=== PATIENT | female | born 1945 | race Caucasian/White ===

== ENCOUNTER → 2020-09-22 | Outpatient (CLI) | payer MEDICARE, BC | END | disposition home or self-care (01) | LOC: LABWHC1 11:39 | PROVIDERS: ATTEND Internal Medicine | DX: Z11.59 Encounter for screening for other viral diseases (principal) ==

== ENCOUNTER 2021-01-27 14:36 | Observation (INO) | payer BC, MEDICARE ==
[2021-01-27 15:12] LABS: Appearance,Urine Clear (Clear); Bacteria,Urine Few /hpf; Bilirubin,Urine Negative (Negative); Blood,Urine Negative (Negative); Color,Urine Yellow; Glucose,Urine (UA) Negative (Negative); Hyaline Casts,Urine 8 /lpf (0-2); Ketones,Urine Negative (Negative); Leukocyte Esterase,Urine Small (Negative); Mucus,Urine Rare /hpf; Nitrite,Urine Negative (Negative); PH, Urine 5.5 (5.0-8.0); Protein,Urine Negative (Negative); RBC,Urine 1 /hpf (0-5); Specific Gravity,Urine 1.013 (1.001-1.035); Squamous Epithelial Cell,Urine 2 /hpf (0-4); Urobilinogen,Urine <2.0 mg/dL (<2.0); WBC,Urine 5 /hpf (0-5)
[2021-01-27 15:43] LABS: Basophils % (A) 0 %; Eosinophils # (A) 0.1 k/uL (0-0.7); Eosinophils % (A) 1 %; HCT 41.9 % (34.0-46.0); HGB 15.1 gm/dL (11.4-16.0); Lymphocytes # (A) 0.6 k/uL (1.0-4.8); Lymphocytes % (A) 5 %; MCH 33.1 pg (25.0-35.0); MCHC 36.1 g/dL (31.0-37.0); MCV 91.8 fL (80.0-100.0); Mean Platelet Volume 6.9; Monocytes # (A) 0.4 k/uL (0-1.0); Monocytes % (A) 4 %; Neutrophils % (A) 89 %; Platelet Count 184 k/uL (150-450); RBC 4.56 m/uL (3.80-5.40); RDW 12.2 % (11.5-15.5); WBC 11.2 k/uL (3.8-10.6)
[2021-01-27 16:10] LABS: Albumin 4.5 g/dL (3.5-5.0); Calcium 9.6 mg/dL (8.4-10.2); Potassium 3.3 mmol/L (3.5-5.1); Total Bilirubin 3.6 mg/dL (0.2-1.3); Total Protein 7.4 g/dL (6.3-8.2)
[2021-01-27] MEDS ORDERED: HYDROmorphone 0.5 MG/0.5 ML SYRINGE IVP STA (17:24)
[2021-01-27] MEDS ORDERED: SODIUM CHLORIDE 0.9% 500 ML 500 ML IV ONE ×2 (17:24→18:45)
[2021-01-27] MEDS ORDERED: PIPERACILLIN-TAZOBACTAM 3.375 GM in SODIUM CHLORIDE 0.9% 100 ML IVPB STA (17:48)
--- NOTE | 2021-01-27 18:12 | ED ---
General Adult HPI - General Chief complaint: Abdominal Pain Stated complaint: ABD pain Time Seen by Provider: 01/27/21 17:16 Source: patient, family, RN notes reviewed, old records reviewed Mode of arrival: ambulatory Limitations: no limitations - History of Present Illness Initial comments: 75-year-old female presented for evaluation of abdominal pain which is been present for the past 2 days. Pain began around her bellybutton and has progressed to the right lower quadrant. She reports low-grade fever. She's had some nausea without significant vomiting. This has been mostly dry heaving. No change to bowel habits no constipation or diarrhea. No dysuria or hematuria. She has a history of a previous Adrianna fundoplication. No other abdominal surgery. - Related Data Home Medications Medication Instructions Recorded Confirmed ALPRAZolam [Xanax] 0.25 mg PO BID PRN 01/27/21 01/27/21 Biotin(Unknown 1 tab PO DAILY 01/27/21 01/27/21 Fish Oil(Unknown) 1 tab PO DAILY 01/27/21 01/27/21 Levothyroxine Sodium [Synthroid] 88 mcg PO DAILY 01/27/21 01/27/21 Omeprazole 20 mg PO DAILY 01/27/21 01/27/21 Triamterene-Hctz 37.5-25Mg 1 tab PO DAILY 01/27/21 01/27/21 [Maxzide 37.5-25] Vitamin B-12(Unknown) 1 tab PO DAILY 01/27/21 01/27/21 Vitamin C(Unknown) 1 tab PO DAILY 01/27/21 01/27/21 Vitamin D3(Unknown) 1 tab PO DAILY 01/27/21 01/27/21 Zinc(Unknown) 1 tab PO DAILY 01/27/21 01/27/21 Allergies Allergy/AdvReac Type Severity Reaction Status Date / Time No Known Allergies Allergy Verified 01/27/21 18:47 Review of Systems ROS Statement: Those systems with pertinent positive or pertinent negative responses have been documented in the HPI. ROS Other: All systems not noted in ROS Statement are negative. Past Medical History Past Medical History: GERD/Reflux, Hypertension, Thyroid Disorder Additional Past Medical History / Comment(s): HIATAL HERNIA,VARICOSE VEINS History of Any Multi-Drug Resistant Organisms: None Reported Past Surgical History: Hernia Repair Additional Past Surgical History / Comment(s): HEMORRHOID SURGERY, colonoscopy, eye surgery Past Anesthesia/Blood Transfusion Reactions: No Reported Reaction Past Psychological History: No Psychological Hx Reported Smoking Status: Never smoker Past Alcohol Use History: None Reported Past Drug Use History: None Reported - Past Family History Mother Family Medical History: No Reported History, Diabetes Mellitus, Thyroid Disorder Additional Family Medical History / Comment(s): Mother had history of diabetes and hypothyroidism and at age 96 from heart problems. Father Additional Family Medical History / Comment(s): ALCOHOLISM father at age 72. Brother(s) Additional Family Medical History / Comment(s): Patient had 5 brothers and 2 have . One has from alcoholism and one had Down syndrome. Sister(s) Family Medical History: Cancer Additional Family Medical History / Comment(s): Patient had 6 sisters and one has from cervical cancer. One sister has had heart problems and one sister has had a stroke. Daughter(s) Additional Family Medical History / Comment(s): Patient has 1 daughter and 1 son with no major medical problems. General Exam Limitations: no limitations General appearance: alert, in no apparent distress Head exam: Present: atraumatic, normocephalic Eye exam: Present: normal appearance, PERRL ENT exam: Present: mucous membranes dry Neck exam: Present: normal inspection. Absent: tenderness, meningismus Respiratory exam: Present: normal lung sounds bilaterally. Absent: respiratory distress, wheezes Cardiovascular Exam: Present: regular rate, normal rhythm GI/Abdominal exam: Present: soft, tenderness (Focal tenderness in both right lower and left lower quadrant). Absent: distended, guarding, rebound Extremities exam: Present: normal inspection, normal capillary refill. Absent: pedal edema Neurological exam: Present: alert, oriented X3, CN II-XII intact. Absent: motor sensory deficit Psychiatric exam: Present: normal affect, normal mood Skin exam: Present: warm, dry, intact. Absent: cyanosis, diaphoretic Course Vital Signs 01/27/21 01/27/21 14:38 17:42 Temperature 100.8 F H Pulse Rate 86 80 Respiratory 22 16 Rate Blood Pressure 134/83 129/69 O2 Sat by Pulse 99 96 Oximetry Medical Decision Making - Medical Decision Making CT showing acute appendicitis. Minimal leukocytosis on CBC. Patient will be admitted to general surgery, case has been discussed with Dr. Denney, who will likely operate this evening. She has been initiated on IV antibiotics. - Lab Data Result diagrams: 01/27/21 15:30 01/27/21 15:30 Lab Results 01/27/21 01/27/21 01/27/21 Range/Units 14:56 15:30 15:30 WBC 11.2 H (3.8-10.6) k/uL RBC 4.56 (3.80-5.40) m/uL Hgb 15.1 (11.4-16.0) gm/dL Hct 41.9 (34.0-46.0) % MCV 91.8 (80.0-100.0) fL MCH 33.1 (25.0-35.0) pg MCHC 36.1 (31.0-37.0) g/dL RDW 12.2 (11.5-15.5) % Plt Count 184 (150-450) k/uL MPV 6.9 Neutrophils % 89 % Lymphocytes % 5 % Monocytes % 4 % Eosinophils % 1 % Basophils % 0 % Neutrophils # 10.0 H (1.3-7.7) k/uL Lymphocytes # 0.6 L (1.0-4.8) k/uL Monocytes # 0.4 (0-1.0) k/uL Eosinophils # 0.1 (0-0.7) k/uL Basophils # 0.0 (0-0.2) k/uL Sodium 135 L (137-145) mmol/L Potassium 3.3 L (3.5-5.1) mmol/L Chloride 95 L (98-107) mmol/L Carbon Dioxide 31 H (22-30) mmol/L Anion Gap 9 mmol/L BUN 21 H (7-17) mg/dL Creatinine 0.96 (0.52-1.04) mg/dL Est GFR (CKD-EPI)AfAm 67 (>60 ml/min/1.73 sqM) Est GFR (CKD-EPI)NonAf 59 (>60 ml/min/1.73 sqM) Glucose 142 H (74-99) mg/dL Plasma Lactic Acid [place] (0.7-2.0) mmol/L Calcium 9.6 (8.4-10.2) mg/dL Total Bilirubin 3.6 H (0.2-1.3) mg/dL AST 25 (14-36) U/L ALT 19 (4-34) U/L Alkaline Phosphatase 53 (38-126) U/L Total Protein 7.4 (6.3-8.2) g/dL Albumin 4.5 (3.5-5.0) g/dL Amylase 39 (30-110) U/L Lipase 37 (23-300) U/L Urine Color Yellow Urine Appearance Clear (Clear) Urine pH 5.5 (5.0-8.0) Ur Specific [place] 1.013 (1.001-1.035) Urine Protein Negative (Negative) Urine Glucose (UA) Negative (Negative) Urine Ketones Negative (Negative) Urine Blood Negative (Negative) Urine Nitrite Negative (Negative) Urine Bilirubin Negative (Negative) Urine Urobilinogen <2.0 (<2.0) mg/dL Ur Leukocyte Esterase Small H (Negative) Urine RBC 1 (0-5) /hpf Urine WBC 5 (0-5) /hpf Ur Squamous Epith Cells 2 (0-4) /hpf Urine Bacteria Few H (None) /hpf Hyaline Casts 8 H (0-2) /lpf Urine Mucus Rare H (None) /hpf 01/27/21 Range/Units 17:39 WBC (3.8-10.6) k/uL RBC (3.80-5.40) m/uL Hgb (11.4-16.0) gm/dL Hct (34.0-46.0) % MCV (80.0-100.0) fL MCH (25.0-35.0) pg MCHC (31.0-37.0) g/dL RDW (11.5-15.5) % Plt Count (150-450) k/uL MPV Neutrophils % % Lymphocytes % % Monocytes % % Eosinophils % % Basophils % % Neutrophils # (1.3-7.7) k/uL Lymphocytes # (1.0-4.8) k/uL Monocytes # (0-1.0) k/uL Eosinophils # (0-0.7) k/uL Basophils # (0-0.2) k/uL Sodium (137-145) mmol/L Potassium (3.5-5.1) mmol/L Chloride (98-107) mmol/L Carbon Dioxide (22-30) mmol/L Anion Gap mmol/L BUN (7-17) mg/dL Creatinine (0.52-1.04) mg/dL Est GFR (CKD-EPI)AfAm (>60 ml/min/1.73 sqM) Est GFR (CKD-EPI)NonAf (>60 ml/min/1.73 sqM) Glucose (74-99) mg/dL Plasma Lactic Acid [place] 1.1 (0.7-2.0) mmol/L Calcium (8.4-10.2) mg/dL Total Bilirubin (0.2-1.3) mg/dL AST (14-36) U/L ALT (4-34) U/L Alkaline Phosphatase (38-126) U/L Total Protein (6.3-8.2) g/dL Albumin (3.5-5.0) g/dL Amylase (30-110) U/L Lipase (23-300) U/L Urine Color Urine Appearance (Clear) Urine pH (5.0-8.0) Ur Specific [place] (1.001-1.035) Urine Protein (Negative) Urine Glucose (UA) (Negative) Urine Ketones (Negative) Urine Blood (Negative) Urine Nitrite (Negative) Urine Bilirubin (Negative) Urine Urobilinogen (<2.0) mg/dL Ur Leukocyte Esterase (Negative) Urine RBC (0-5) /hpf Urine WBC (0-5) /hpf Ur Squamous Epith Cells (0-4) /hpf Urine Bacteria (None) /hpf Hyaline Casts (0-2) /lpf Urine Mucus (None) /hpf Disposition Clinical Impression: Acute appendicitis Disposition: ADMITTED IP TO THIS HOSP Condition: Stable Is patient prescribed a controlled substance at d/c from ED?: No Referrals: Lupe Rojo MD [Primary Care Provider] - 1-2 days Decision to Admit Reason: Admit from EC Decision Date: 01/27/21 Decision Time: 19:14
--- NOTE | 2021-01-27 18:35 | CT ---
EXAMINATION TYPE: CT abdomen pelvis w con DATE OF EXAM: 01/27/2021 COMPARISON: None HISTORY: Right lower quadrant abdominal pain. CT DLP: 866.7 mGycm Automated exposure control for dose reduction was used. CONTRAST: Performed with IV Contrast, patient injected with 80ml mL of Isovue 300. Images obtained from the diaphragm to the floor the pelvis with IV contrast. There is some mild interstitial density and subsegmental atelectasis at the lung bases. There is no p leural effusion. Heart size is normal. There is hiatal hernia. There are clips at the gastric fundus. There is 1 cm hypodensity in the superior right lobe of the liver that is probably a cyst. Gallbladd er appears normal. Spleen is intact. There is no pancreatic mass. Stomach is intact. There is no adrenal mass. Kidneys show satisfactory contrast opacification. There is no hydronephrosi s. There is 7.5 cm cortical cyst lateral left kidney. Kidneys show satisfactory contrast opacificatio n. There is no hydronephrosis. Ureters are not dilated. There is no retroperitoneal adenopathy. Bladd er distends smoothly. There is no pelvic mass. There is no free fluid in the pelvis. Uterus is anteve rted. There are multiple sigmoid diverticula. There is no evidence of diverticulitis. There is mild lumbar dextroscoliosis. There are some spondylotic changes in the mid lumbar spine. The re is no compression fracture. The bony pelvis is intact. The hip joints are intact. There is thickened fluid-filled appendix. This measures up to almost 12 mm and is seen inferior and m edially. There is very minimal fat stranding around the tip of the cecum. There is no evidence of a b owel obstruction. There is no ascites or free air. IMPRESSION: Thickened fluid-filled appendix consistent with acute appendicitis. No abscess. Sigmoid diverticulosis without diverticulitis.
[2021-01-27] MEDS ORDERED: HYDROmorphone 0.5 MG/0.5 ML SYRINGE IVP PRN (18:43)
[2021-01-27] MEDS ORDERED: ACETAMINOPHEN TAB 325 MG TAB PO PRN (18:43)
[2021-01-27] MEDS ORDERED: NALOXONE 0.4 MG/ML 1 ML VIAL IV PRN ×2 (18:43→20:51)
--- NOTE | 2021-01-27 19:26 | P.GSHP ---
History of Present Illness H&P Date: 01/27/21 Chief Complaint: Right lower quadrant pain This 75-year-old female with a 2 day history of right lower quadrant pain. Patient worked emergency room found evidence of acute appendicitis. Past Medical History Past Medical History: GERD/Reflux, Hypertension, Thyroid Disorder Additional Past Medical History / Comment(s): HIATAL HERNIA,VARICOSE VEINS History of Any Multi-Drug Resistant Organisms: None Reported Past Surgical History: Hernia Repair Additional Past Surgical History / Comment(s): HEMORRHOID SURGERY, colonoscopy, eye surgery Past Anesthesia/Blood Transfusion Reactions: No Reported Reaction Past Psychological History: No Psychological Hx Reported Smoking Status: Never smoker Past Alcohol Use History: None Reported Past Drug Use History: None Reported - Past Family History Mother Family Medical History: No Reported History, Diabetes Mellitus, Thyroid Disorder Additional Family Medical History / Comment(s): Mother had history of diabetes and hypothyroidism and at age 96 from heart problems. Father Additional Family Medical History / Comment(s): ALCOHOLISM father at age 72. Brother(s) Additional Family Medical History / Comment(s): Patient had 5 brothers and 2 have . One has from alcoholism and one had Down syndrome. Sister(s) Family Medical History: Cancer Additional Family Medical History / Comment(s): Patient had 6 sisters and one has from cervical cancer. One sister has had heart problems and one sister has had a stroke. Daughter(s) Additional Family Medical History / Comment(s): Patient has 1 daughter and 1 son with no major medical problems. Medications and Allergies Home Medications Medication Instructions Recorded Confirmed Type ALPRAZolam [Xanax] 0.25 mg PO BID PRN 01/27/21 01/27/21 History Biotin(Unknown 1 tab PO DAILY 01/27/21 01/27/21 History Fish Oil(Unknown) 1 tab PO DAILY 01/27/21 01/27/21 History Levothyroxine Sodium [Synthroid] 88 mcg PO DAILY 01/27/21 01/27/21 History Omeprazole 20 mg PO DAILY 01/27/21 01/27/21 History Triamterene-Hctz 37.5-25Mg 1 tab PO DAILY 01/27/21 01/27/21 History [Maxzide 37.5-25] Vitamin B-12(Unknown) 1 tab PO DAILY 01/27/21 01/27/21 History Vitamin C(Unknown) 1 tab PO DAILY 01/27/21 01/27/21 History Vitamin D3(Unknown) 1 tab PO DAILY 01/27/21 01/27/21 History Zinc(Unknown) 1 tab PO DAILY 01/27/21 01/27/21 History Allergies Allergy/AdvReac Type Severity Reaction Status Date / Time No Known Allergies Allergy Verified 01/27/21 18:47 Surgical - Exam Vital Signs Temp Pulse Resp BP Pulse Ox 100.8 F H 86 22 134/83 99 01/27/21 14:38 01/27/21 14:38 01/27/21 14:38 01/27/21 14:38 01/27/21 14:38 - General well developed, well nourished, no distress - Eyes PERRL - ENT normal pinna - Neck no masses - Respiratory normal expansion - Cardiovascular Rhythm: regular - Abdomen Right lower quadrant pain Abdomen: soft Results - Labs 01/27/21 15:30 01/27/21 15:30 Abnormal Lab Results - Last 24 Hours (Table) 01/27/21 01/27/21 01/27/21 Range/Units 14:56 15:30 15:30 WBC 11.2 H (3.8-10.6) k/uL Neutrophils # 10.0 H (1.3-7.7) k/uL Lymphocytes # 0.6 L (1.0-4.8) k/uL Sodium 135 L (137-145) mmol/L Potassium 3.3 L (3.5-5.1) mmol/L Chloride 95 L (98-107) mmol/L Carbon Dioxide 31 H (22-30) mmol/L BUN 21 H (7-17) mg/dL Glucose 142 H (74-99) mg/dL Total Bilirubin 3.6 H (0.2-1.3) mg/dL Ur Leukocyte Esterase Small H (Negative) Urine Bacteria Few H (None) /hpf Hyaline Casts 8 H (0-2) /lpf Urine Mucus Rare H (None) /hpf Diabetes panel 01/27/21 Range/Units 15:30 Sodium 135 L (137-145) mmol/L Potassium 3.3 L (3.5-5.1) mmol/L Chloride 95 L (98-107) mmol/L Carbon Dioxide 31 H (22-30) mmol/L BUN 21 H (7-17) mg/dL Creatinine 0.96 (0.52-1.04) mg/dL Glucose 142 H (74-99) mg/dL Calcium 9.6 (8.4-10.2) mg/dL AST 25 (14-36) U/L ALT 19 (4-34) U/L Alkaline Phosphatase 53 (38-126) U/L Total Protein 7.4 (6.3-8.2) g/dL Albumin 4.5 (3.5-5.0) g/dL Calcium panel 01/27/21 Range/Units 15:30 Calcium 9.6 (8.4-10.2) mg/dL Albumin 4.5 (3.5-5.0) g/dL Pituitary panel 01/27/21 Range/Units 15:30 Sodium 135 L (137-145) mmol/L Potassium 3.3 L (3.5-5.1) mmol/L Chloride 95 L (98-107) mmol/L Carbon Dioxide 31 H (22-30) mmol/L BUN 21 H (7-17) mg/dL Creatinine 0.96 (0.52-1.04) mg/dL Glucose 142 H (74-99) mg/dL Calcium 9.6 (8.4-10.2) mg/dL Adrenal panel 01/27/21 Range/Units 15:30 Sodium 135 L (137-145) mmol/L Potassium 3.3 L (3.5-5.1) mmol/L Chloride 95 L (98-107) mmol/L Carbon Dioxide 31 H (22-30) mmol/L BUN 21 H (7-17) mg/dL Creatinine 0.96 (0.52-1.04) mg/dL Glucose 142 H (74-99) mg/dL Calcium 9.6 (8.4-10.2) mg/dL Total Bilirubin 3.6 H (0.2-1.3) mg/dL AST 25 (14-36) U/L ALT 19 (4-34) U/L Alkaline Phosphatase 53 (38-126) U/L Total Protein 7.4 (6.3-8.2) g/dL Albumin 4.5 (3.5-5.0) g/dL Assessment and Plan Assessment: Acute appendicitis. Patient will undergo laparoscopic appendectomy
[2021-01-27] MEDS ORDERED: 0.9% NACL WITH KCL 20 MEQ/L 1,000 ML IV SCH (20:00)
[2021-01-27] MEDS ORDERED: LACTATED RINGERS 1,000 ML IV SCH (20:00)
[2021-01-27] MEDS ORDERED: PROPOFOL 10 MG/ML 20 ML VIAL IV ONE (20:18)
[2021-01-27] MEDS ORDERED: SUCCINYLCHOLINE CHLORIDE 100 MG/5 ML SYR IV ONE (20:18)
[2021-01-27] MEDS ORDERED: LIDOCAINE 1% INJ 10MG/ML (20 ML MDV) ONE (20:18)
[2021-01-27] MEDS ORDERED: GLYCOPYRROLATE 0.2 MG/ML 2 ML VIAL ONE (20:18)
[2021-01-27] MEDS ORDERED: fentaNYL (PF) 50 MCG/ML 2 ML AMP ONE (20:18)
[2021-01-27] MEDS ORDERED: ROCURONIUM 10 MG/ML (5 ML VIAL) IV ONE (20:18)
[2021-01-27] MEDS ORDERED: LACTATED RINGERS 1,000 ML IV ONE ×2 (20:18→20:51)
[2021-01-27] MEDS ORDERED: NEOSTIGMINE 1 MG/ML 10 ML VIAL ONE (20:18)
[2021-01-27] MEDS ORDERED: SODIUM CHLORIDE 0.9% 100 ML with ceFAZolin 2,000 MG IV ONE ×2 (20:30)
[2021-01-27] MEDS ORDERED: BUPIVACAINE (PF) 0.5% 30 ML VIAL SQ ONE (20:50)
[2021-01-27] MEDS ORDERED: HYDROcodone/APAP 5-325MG 1 EACH TAB PO PRN (20:51)
--- NOTE | 2021-01-27 20:51 | P.OP ---
Date of Procedure: 01/27/21 Preoperative Diagnosis: Acute appendicitis Postoperative Diagnosis: Appendicitis Procedure(s) Performed: Laparoscopic appendectomy Anesthesia: DAVID Surgeon: Jose Denney Pathology: other (Appendix) Condition: stable Disposition: PACU Description of Procedure: The patient's placed on the operating table in the supine position. The patient received general anesthesia. The abdomen was prepped and draped in the usual sterile fashion. The skin was anesthetized 1% local Xylocaine at the trocar s ites. Using an 11 blade the skin was incised at the umbilicus. The umbilicus was grasped with a Pacheco clamp and then a Veress needle was placed into the peritoneal cavity. Position of the Veress needle was confirmed with positive drop test. After adequate insufflation a 5 mm trocar was placed into the peritoneal cavity. The abdomen was further insufflated. And then the laparoscope was placed in the peritoneal cavity. Next a 5 mm trocar was placed in the midline suprapubic position. And then a 10 mm trocar was placed in the midline epigastric position. The patient was rotated with the right side up and in Trendelenburg. The appendix was visualized. The appendix appeared to be inflamed. The appendix was grasped and then using the Harmonic scissors the mesoappendix was divided. A PDS Endoloop was then placed around the base of the appendix. And then the appendix was divided using Harmonic scissors. The appendix was placed into an Endo Catch and brought out through the 10 mm trocar site. The abdomen was irrigated. There is no bleeding seen. The trochars withdrawn. The skin was closed interrupted 3-0 Monocryl suture. Dermabond dressing was applied. Patient was sent to recovery room in stable condition.
[2021-01-27] MEDS: KETOROLAC 15 MG/ML 1 ML VIAL IVP SCH (22:57)
[2021-01-28] MEDS ORDERED: PIPERACILLIN-TAZOBACTAM 3.375 GM in SODIUM CHLORIDE 0.9% 100 ML IVPB SCH (02:00)
[2021-01-28] MEDS: KETOROLAC 15 MG/ML 1 ML VIAL IVP SCH (05:45)
[2021-01-28] MEDS ORDERED: HYDROmorphone 0.5 MG/0.5 ML SYRINGE IVP PRN (07:00)
[2021-01-28] MEDS ORDERED: ONDANSETRON 4 MG/2 ML VIAL IVP PRN (07:00)
[2021-01-28 08:15] VITALS: PULSE 85; RESP 16; TEMP 98.2
[2021-01-28] MEDS ORDERED: ENOXAPARIN 40 MG/0.4 ML SYRINGE SQ SCH (09:00)
[2021-01-28 09:54] LABS: Basophils % (A) 0 %; Eosinophils # (A) 0.1 k/uL (0-0.7); Eosinophils % (A) 3 %; HCT 32.7 % (34.0-46.0); HGB 12.2 gm/dL (11.4-16.0); Lymphocytes # (A) 0.6 k/uL (1.0-4.8); Lymphocytes % (A) 11 %; MCH 34.7 pg (25.0-35.0); MCHC 37.2 g/dL (31.0-37.0); MCV 93.3 fL (80.0-100.0); Mean Platelet Volume 7.1; Monocytes # (A) 0.3 k/uL (0-1.0); Monocytes % (A) 6 %; Neutrophils # (A) 3.9 k/uL (1.3-7.7); Neutrophils % (A) 79 %; Platelet Count 131 k/uL (150-450); RBC 3.51 m/uL (3.80-5.40); RDW 12.2 % (11.5-15.5)
[2021-01-28 10:02] LABS: Calcium 8.6 mg/dL (8.4-10.2); Potassium 3.5 mmol/L (3.5-5.1)
[2021-01-28 10:38] VITALS: BP 107/61
--- NOTE | 2021-01-28 10:38 | P.DS ---
Providers Date of admission: 01/27/21 18:43 Expected date of discharge: 01/28/21 Attending physician: Jose Denney Consults: 01/27/21 20:51 Consult Physician Routine Consulting Provider: Allyssa Jackson Consult Reason/Comments: Medical management Do you want consulting provider notified?: Yes Primary care physician: Lupe Rojo Hospital Course: Discharge diagnosis 1. Acute appendicitis status post laparoscopic appendectomy Hospital course This 75-year-old female with a 2 day history of right lower quadrant pain. Patient worked emergency room found evidence of acute appendicitis noted on CAT scan. Patient is status post laparoscopic appendectomy. She tolerated surgery well. Her pain is controlled. She is tolerating diet. She is gas. She has been up and ambulating. She is afebrile. She is stable for discharge. Please refer to chart for any further details. Physician Recorder Of Deeds note has been reviewed by physician. Signing provider agrees with the documented findings, assessment, and plan of care. Patient Condition at Discharge: Stable Plan - Discharge Summary Discharge Rx Participant: No New Discharge Prescriptions: New Amoxicillin/Potassium Clav [Augmentin 875-125 Tablet] 1 tab PO Q12HR 1 Days #14 tab Docusate [Colace] 100 mg PO BID #30 capsule HYDROcodone/APAP 5-325MG [[place] 5-325] 1 tab PO Q6HR PRN 3 Days #12 tab PRN Reason: Pain Continue Levothyroxine Sodium [Synthroid] 88 mcg PO DAILY Zinc(Unknown) 1 tab PO DAILY Vitamin C(Unknown) 1 tab PO DAILY Fish Oil(Unknown) 1 tab PO DAILY ALPRAZolam [Xanax] 0.25 mg PO BID PRN PRN Reason: Anxiety Omeprazole 20 mg PO DAILY Vitamin D3(Unknown) 1 tab PO DAILY Vitamin B-12(Unknown) 1 tab PO DAILY Biotin(Unknown 1 tab PO DAILY No Action Triamterene-Hctz 37.5-25Mg [Maxzide 37.5-25] 1 tab PO DAILY Discharge Medication List ALPRAZolam [Xanax] 0.25 mg PO BID PRN 01/27/21 [History] Biotin(Unknown 1 tab PO DAILY 01/27/21 [History] Fish Oil(Unknown) 1 tab PO DAILY 01/27/21 [History] Levothyroxine Sodium [Synthroid] 88 mcg PO DAILY 01/27/21 [History] Omeprazole 20 mg PO DAILY 01/27/21 [History] Triamterene-Hctz 37.5-25Mg [Maxzide 37.5-25] 1 tab PO DAILY 01/27/21 [History] Vitamin B-12(Unknown) 1 tab PO DAILY 01/27/21 [History] Vitamin C(Unknown) 1 tab PO DAILY 01/27/21 [History] Vitamin D3(Unknown) 1 tab PO DAILY 01/27/21 [History] Zinc(Unknown) 1 tab PO DAILY 01/27/21 [History] Amoxicillin/Potassium Clav [Augmentin 875-125 Tablet] 1 tab PO Q12HR 1 Days #14 tab 01/28/21 [Rx] Docusate [Colace] 100 mg PO BID #30 capsule 01/28/21 [Rx] HYDROcodone/APAP 5-325MG [[place] 5-325] 1 tab PO Q6HR PRN 3 Days #12 tab 01/28/21 [Rx] Follow up Appointment(s)/Referral(s): Lupe Rojo MD [Primary Care Provider] - 1-2 days Jose Denney MD [STAFF PHYSICIAN] - 1 Week Activity/Diet/Wound Care/Special Instructions: No driving while taking [place] No lifting over 10 pounds You may shower. No soaking or tub baths for 2 weeks Very light activity until you are reevaluated at your follow up appointment with your surgeon Discharge Disposition: HOME SELF-CARE
--- NOTE | 2021-01-28 12:47 | P.CONS ---
History of Present Illness - Reason for Consult Hypertension - History of Present Illness Patient was given 5-year-old female came in with right lower quadrant abdominal pain. And ascites patient is status post appendectomy. Patient does have history of hypertension patient is being now hyponatremic as well as hypotensive expected perioperative period. Patient does take diuretics for hypertension at home. Patient is clinically doing well is being discharged today Review of Systems REVIEW OF SYSTEMS: CONSTITUTIONAL: No fever, no malaise, no fatigue. HEENT: No recent visual problems or hearing problems. Denied any sore throat. CARDIOVASCULAR: No chest pain, orthopnea, PND, no palpitations, no syncope. PULMONARY: No shortness of breath, no cough, no hemoptysis. GASTROINTESTINAL: No diarrhea, no nausea, no vomiting, no abdominal pain. NEUROLOGICAL: No headaches, no weakness, no numbness. HEMATOLOGICAL: Denies any bleeding or petechiae. GENITOURINARY: Denies any burning micturition, frequency, or urgency. MUSCULOSKELETAL/RHEUMATOLOGICAL: Denies any joint pain, swelling, or any muscle pain. ENDOCRINE: Denies any polyuria or polydipsia. The rest of the 14-point review of systems is negative. Past Medical History Past Medical History: GERD/Reflux, Hypertension, Thyroid Disorder Additional Past Medical History / Comment(s): HIATAL HERNIA,VARICOSE VEINS History of Any Multi-Drug Resistant Organisms: None Reported Past Surgical History: Appendectomy, Hernia Repair Additional Past Surgical History / Comment(s): HEMORRHOID SURGERY, colonoscopy, eye surgery, 01/27/21 lap appy Past Anesthesia/Blood Transfusion Reactions: No Reported Reaction Past Psychological History: No Psychological Hx Reported Smoking Status: Never smoker Past Alcohol Use History: None Reported Additional Past Alcohol Use History / Comment(s): Patient has been a lifelong nonsmoker. She denies any medical marijuana, marijuana or street drug use. She does not use alcohol. She is currently living at home with her and is exposed to secondhand smoke. Past Drug Use History: None Reported - Past Family History Mother Family Medical History: No Reported History, Diabetes Mellitus, Thyroid Disorder Additional Family Medical History / Comment(s): Mother had history of diabetes and hypothyroidism and at age 96 from heart problems. Father Additional Family Medical History / Comment(s): ALCOHOLISM father at age 72. Brother(s) Additional Family Medical History / Comment(s): Patient had 5 brothers and 2 have . One has from alcoholism and one had Down syndrome. Sister(s) Family Medical History: Cancer Additional Family Medical History / Comment(s): Patient had 6 sisters and one has from cervical cancer. One sister has had heart problems and one sister has had a stroke. Daughter(s) Additional Family Medical History / Comment(s): Patient has 1 daughter and 1 son with no major medical problems. Medications and Allergies Home Medications Medication Instructions Recorded Confirmed Type ALPRAZolam [Xanax] 0.25 mg PO BID PRN 01/27/21 01/27/21 History Biotin(Unknown 1 tab PO DAILY 01/27/21 01/27/21 History Fish Oil(Unknown) 1 tab PO DAILY 01/27/21 01/27/21 History Levothyroxine Sodium [Synthroid] 88 mcg PO DAILY 01/27/21 01/27/21 History Omeprazole 20 mg PO DAILY 01/27/21 01/27/21 History Vitamin B-12(Unknown) 1 tab PO DAILY 01/27/21 01/27/21 History Vitamin C(Unknown) 1 tab PO DAILY 01/27/21 01/27/21 History Vitamin D3(Unknown) 1 tab PO DAILY 01/27/21 01/27/21 History Zinc(Unknown) 1 tab PO DAILY 01/27/21 01/27/21 History Amoxicillin/Potassium Clav 1 tab PO Q12HR 1 Days #14 tab 01/28/21 Rx [Augmentin 875-125 Tablet] Docusate [Colace] 100 mg PO BID #30 capsule 01/28/21 Rx HYDROcodone/APAP 5-325MG [[place] 1 tab PO Q6HR PRN 3 Days #12 tab 01/28/21 Rx 5-325] Allergies Allergy/AdvReac Type Severity Reaction Status Date / Time No Known Allergies Allergy Verified 01/27/21 18:47 Physical Exam Vitals: Vital Signs Temp Pulse Pulse Pulse Resp BP BP 01/28/21 10:38 107/61 01/28/21 08:00 66 85 16 01/28/21 07:07 98.2 F 85 16 102/56 01/28/21 02:00 98.9 F 60 110/67 01/27/21 22:40 68 18 107/65 01/27/21 22:25 67 18 107/64 01/27/21 22:10 66 18 116/69 01/27/21 22:01 98.5 F 66 18 115/64 01/27/21 21:30 66 18 132/64 01/27/21 21:15 71 18 148/72 01/27/21 21:00 97.1 F L 70 16 177/94 01/27/21 17:42 80 16 129/69 01/27/21 14:38 100.8 F H 86 22 134/83 Pulse Ox 01/28/21 10:38 01/28/21 08:00 01/28/21 07:07 94 L 01/28/21 02:00 95 01/27/21 22:40 94 L 01/27/21 22:25 94 L 01/27/21 22:10 93 L 01/27/21 22:01 95 01/27/21 21:30 92 L 01/27/21 21:15 94 L 01/27/21 21:00 95 01/27/21 17:42 96 01/27/21 14:38 99 Intake and Output 01/27/21 01/28/21 01/28/21 22:59 06:59 14:59 Intake Total 700 240 Output Total 5 Balance 695 240 Intake: IV 700 Oral 240 Output: Estimated Blood Loss 5 Other: Voiding Method Toilet Toilet Toilet # Voids 1 1 Weight 72.575 kg PHYSICAL EXAMINATION: GENERAL: The patient is alert and oriented x3, not in any acute distress. Well developed, well nourished. HEENT: Pupils are round and equally reacting to light. EOMI. No scleral icterus. No conjunctival pallor. Normocephalic, atraumatic. No pharyngeal erythema. No thyromegaly. CARDIOVASCULAR: S1 and S2 present. No murmurs, rubs, or gallops. PULMONARY: Chest is clear to auscultation, no wheezing or crackles. ABDOMEN: Soft, nontender, nondistended, normoactive bowel sounds. No palpable organomegaly. Surgical site areas appear clean MUSCULOSKELETAL: No joint swelling or deformity. EXTREMITIES: No cyanosis, clubbing, or pedal edema. NEUROLOGICAL: Gross neurological examination did not reveal any focal deficits. SKIN: No rashes. Results CBC & Chem 7: 01/28/21 09:34 01/28/21 09:34 Labs: Abnormal Lab Results - Last 24 Hours (Table) 01/27/21 01/27/21 01/27/21 Range/Units 14:56 15:30 15:30 WBC 11.2 H (3.8-10.6) k/uL RBC (3.80-5.40) m/uL Hct (34.0-46.0) % MCHC (31.0-37.0) g/dL Plt Count (150-450) k/uL Neutrophils # 10.0 H (1.3-7.7) k/uL Lymphocytes # 0.6 L (1.0-4.8) k/uL Sodium 135 L (137-145) mmol/L Potassium 3.3 L (3.5-5.1) mmol/L Chloride 95 L (98-107) mmol/L Carbon Dioxide 31 H (22-30) mmol/L BUN 21 H (7-17) mg/dL Glucose 142 H (74-99) mg/dL Total Bilirubin 3.6 H (0.2-1.3) mg/dL Ur Leukocyte Esterase Small H (Negative) Urine Bacteria Few H (None) /hpf Hyaline Casts 8 H (0-2) /lpf Urine Mucus Rare H (None) /hpf 01/28/21 01/28/21 Range/Units 09:34 09:34 WBC (3.8-10.6) k/uL RBC 3.51 L (3.80-5.40) m/uL Hct 32.7 L (34.0-46.0) % MCHC 37.2 H (31.0-37.0) g/dL Plt Count 131 L (150-450) k/uL Neutrophils # (1.3-7.7) k/uL Lymphocytes # 0.6 L (1.0-4.8) k/uL Sodium 133 L (137-145) mmol/L Potassium (3.5-5.1) mmol/L Chloride 97 L (98-107) mmol/L Carbon Dioxide (22-30) mmol/L BUN 20 H (7-17) mg/dL Glucose 165 H (74-99) mg/dL Total Bilirubin (0.2-1.3) mg/dL Ur Leukocyte Esterase (Negative) Urine Bacteria (None) /hpf Hyaline Casts (0-2) /lpf Urine Mucus (None) /hpf Assessment and Plan Plan: -Hyponatremia: Secondary to diuretics which will be held patient will check her blood pressure at home will follow with PCP and decide whether she needs any antidepressant medications at that time. Hypertension management as mentioned above -Gastroesophageal reflux disease - hypothyroidism -Acute appendicitis patient is status post appendectomy and patient is being discharged on Augmentin at this time
== END 2021-01-28 13:17 | disposition home or self-care (01) ==
LOC: EC 14:36 → 1SOBS 18:43
PROVIDERS: ADMIT Surgery; ATTEND Surgery
DX: K35.80 Unspecified acute appendicitis (principal); K21.9 Gastro-esophageal reflux disease without esophagitis; I10 Essential (primary) hypertension; E03.9 Hypothyroidism, unspecified; F41.9 Anxiety disorder, unspecified; E87.1 Hypo-osmolality and hyponatremia; I83.90 Asymptomatic varicose veins of unspecified lower extremity; Z79.890 Hormone replacement therapy; Z79.899 Other long term (current) drug therapy; Z83.3 Family history of diabetes mellitus; Z82.49 Family history of ischemic heart disease and other diseases of the circulatory system; Z83.49 Family history of other endocrine, nutritional and metabolic diseases; Z81.1 Family history of alcohol abuse and dependence; Z82.79 Family history of other congenital malformations, deformations and chromosomal abnormalities; Z80.49 Family history of malignant neoplasm of other genital organs; Z82.3 Family history of stroke; Z20.822 Contact with and (suspected) exposure to COVID-19; Z77.22 Contact with and (suspected) exposure to environmental tobacco smoke (acute) (chronic)
CPT/HCPCS: 44970; 96365; 96375; 99285; 36415; 88304; 80053; 80048; 82150; 83605; 83690; 85025 ×2; 81001; 87040; 87635; 74177; G0378 ×2; J2543 ×2; J2710; J0690; J2001; J1650; J3010; J1885 ×2; J0330; J2704; J1170; Q9967